=== PATIENT | male | born 1980 | race Caucasian/White ===

== ENCOUNTER 2024-04-19 12:13 | Emergency (ER) | payer MEDICAID, OTHER ==
[~2024-04-19] VITALS: Ht 182.9 cm; Wt 163.9 kg
[2024-04-19 13:11] VITALS: BP 148/100; PULSE 100; RESP 16; TEMP 98; O2SAT 98
[2024-04-19] MEDS ORDERED: AUG875T PO (15:33)
[2024-04-19] MEDS ORDERED: IBUP1TAB5 PO (15:33)
[2024-04-19] MEDS: IBUPROFEN 600 MG TAB PO ONE (15:39)
[2024-04-19] MEDS: TETANUS-DIPTH-ACEL PERTUSSIS 0.5ML SYR Tdap IM ONE (15:40)
[2024-04-19] MEDS: cefTRIAXone SOD 1,000 MG VL IM ONE (15:49)
== END 2024-04-19 15:48 | disposition home or self-care (01) ==
LOC: ER 12:13
DX: S61.432A Puncture wound without foreign body of left hand, initial encounter (principal); L08.89 Other specified local infections of the skin and subcutaneous tissue; I11.0 Hypertensive heart disease with heart failure; I50.9 Heart failure, unspecified; F32.9 Major depressive disorder, single episode, unspecified; W54.0XXA Bitten by dog, initial encounter; Y93.89 Activity, other specified; Y92.89 Other specified places as the place of occurrence of the external cause; Y99.8 Other external cause status
CPT/HCPCS: 90471; 90715; 96372; 99284; J0696